=== PATIENT | male | born 1960 | race Caucasian/White ===

== ENCOUNTER 2016-07-16 11:45 | Day surgery (SDC) | payer BC ==
[2016-07-14 09:02] VITALS: BMI 25.7
[~2016-07-16 11:45] MED LIST: LACTATED RINGERS 1,000 ML IV SCH
[2016-07-16 12:39] VITALS: RESP 16; TEMP 98.4
[2016-07-16] MEDS ORDERED: LIDOCAINE 1% 20 ML VIAL (10MG/ML) FOR IV START INTRADERMA ONE (12:44)
[2016-07-16] MEDS ORDERED: IOHEXOL 180 MG/ML 1 ML ML ONE (13:15)
[2016-07-16] MEDS ORDERED: MIDAZOLAM 2 MG/2 ML VIAL ONE (13:15)
[2016-07-16] MEDS ORDERED: TRIAMCINOLONE ACETONIDE 40 MG/ML 1 ML VIAL ONE (13:15)
[2016-07-16] MEDS ORDERED: fentaNYL (PF) 50 MCG/ML 2 ML AMP ONE (13:15)
--- NOTE | 2016-07-16 13:27 | P.PCN ---
Date of Procedure: 07/16/16 Surgeon: Jh Lawson Pathology: none sent Condition: stable Disposition: PACU Description of Procedure: PREOPERATIVE DIAGNOSIS: Lumbar post laminectomy syndrome. POSTOPERATIVE DIAGNOSIS: Lumbar post laminectomy syndrome. PROCEDURE: 1. Caudal epidural steroid injection under fluoroscopic guidance. 2. Caudal epidurogram. ANESTHESIA: Local with 1% lidocaine; conscious IV sedation EBL: None. PROCEDURE INDICATION: This is a patient with postlaminectomy syndrome with uncontrolled pain who presents for caudal ANDREW today. No use of blood thinners. PROCEDURE DESCRIPTION: The patient was seen and identified in the preoperative area. Risks, benefits, complications, and alternatives were discussed with the patient including but not limited to bleeding, infection, nerve damage, incomplete pain relief, and allergic reactions to medications. The patient agreed to proceed with the procedure and signed the consent. IV was started, and vital signs were stable. Patient was taken to the OR and time out was completed. The patient was placed in the prone position on procedure table and a pillow was placed under the abdomen to reduce lumbar lordosis. The lumbosacral area was prepped and draped in the usual sterile fashion. Vital signs were closely monitored during the procedure. Using lateral fluoroscopy the anterior-posterior plates of the sacrum were identified and the skin and deeper tissues corresponding into sacrococcygeal ligament were anesthetized using approximately 3 mL of 1% lidocaine. Then under fluoroscopy, a 3-1/2-inch 20-gauge Tuohy epidural needle was guided through the sacrococcygeal ligament, and into the epidural space. After negative aspiration , a 1 mL of omnipaque-300 contrast dye was injected with excellent epidurogram. Again after negative aspiration for CSF, blood, and with no paresthesias, a solution containing Kenalog 80mg, 3ml of 1% preservative free lidocaine with 10 ml of preservative free normal saline (total of 15 ml) solution was injected with washout of epidurogram. Needle was withdrawn intact. Skin was cleansed, and bandage was applied. COMPLICATIONS: None. COMMENTS: DISPOSITION / PLANS: The patient was placed in a supine position and transferred to the recovery area in a stable condition for observation and was discharged from the recovery room after meeting discharge criteria. Home discharge instructions given to the patient by the staff. The patient was reexamined prior to discharge. The patient will schedule a follow up procedure in 4-6 weeks.
[2016-07-16] MEDS ORDERED: IV FLUID CONTINUATION 1,000 ML IV ONE (13:33)
[2016-07-16 13:37] VITALS: PULSE 57
--- NOTE | 2016-07-16 13:54 | FL ---
EXAMINATION TYPE: FL guided pain mgmt statistic DATE OF EXAM: 07/16/2016 1:31 PM HISTORY: Flouroscopy time 6 seconds of fluoroscopy provided. IMPRESSION: 1. Fluoroscopy time.
[2016-07-16 13:55] VITALS: BP 135/74
--- NOTE | 2016-07-19 05:55 | CDI ---
Dear Dr. Lawson, Per your procedure note, Conscious sedation was documented. The Pain Procedure Record, however, has MAC checked off under Anesthesia Plan. This is conflicting documentation that needs clarification for proper reporting purposes. Please clarify if the anesthesia provided for Nubia Del Rosario was MAC (Monitored Anesthesia Care) or Conscious/Moderate Sedation. Please document this clarification as an addendum to the procedure note. Thank you for your time, Theresa Kapoor, [facility] Outpatient Photographer [email or web address]
== END 2016-07-16 14:05 | disposition home or self-care (01) ==
LOC: ORPAIN 11:45
PROVIDERS: ATTEND Anesthesiology
DX: G89.28 Other chronic postprocedural pain (principal); M54.5 Low back pain; M96.1 Postlaminectomy syndrome, not elsewhere classified; Z91.09 Other allergy status, other than to drugs and biological substances
CPT/HCPCS: 62323; J2250; J3301; Q9965; J3010

== ENCOUNTER → 2016-08-22 | Outpatient (CLI) | payer BC ==
[2016-08-22 09:54] LABS: CH 31.5; CHCM 34.2; HCT 48.2 % (39.0-53.0); HDW 2.61; MCH 30.6 pg (25.0-35.0); MCHC 33.1 g/dL (31.0-37.0); MCV 92.4 fL (80.0-100.0); Mean Platelet Volume 6.9; RBC 5.22 m/uL (4.30-5.90); RDW 13.1 % (11.5-15.5); WBC 4.5 k/uL (3.8-10.6)
[2016-08-22 10:54] LABS: ALT 43 U/L (21-72); AST 38 U/L (17-59); Alkaline Phosphatase 66 U/L (38-126); Anion Gap 7 mmol/L; Blood Urea Nitrogen 21 mg/dL (9-20); Calcium 9.6 mg/dL (8.4-10.2); Carbon Dioxide 31 mmol/L (22-30); Chloride 103 mmol/L (98-107); Cholesterol 305 mg/dL (<200); Glucose 101 mg/dL (74-99); HDL Cholesterol 59 mg/dL (40-60); Non-African American GFR(MDRD) >60 (>60 ml/min/1.73 sqM); Sodium 141 mmol/L (137-145); Total Bilirubin 1.1 mg/dL (0.2-1.3); Total Protein 7.5 g/dL (6.3-8.2); Triglycerides 144 mg/dL (<150)
[2016-08-22 11:26] LABS: Prostate Specific Antigen 0.72 ng/mL (0.00-4.00)
== END | disposition home or self-care (01) ==
LOC: LABWHC1 09:17
PROVIDERS: ATTEND Family Medicine
DX: M47.27 Other spondylosis with radiculopathy, lumbosacral region (principal); F33.1 Major depressive disorder, recurrent, moderate; J01.10 Acute frontal sinusitis, unspecified; Z98.890 Other specified postprocedural states
CPT/HCPCS: 36415; 80053; 80061; 84153; 84443; 85027

== ENCOUNTER 2016-11-29 19:59 | Emergency (ER) | payer BC ==
[2016-11-29] MEDS ORDERED: SODIUM CHLORIDE 0.9% 1,000 ML IV STA (20:19)
[2016-11-29] MEDS ORDERED: ceFAZolin 1,000 MG in DEXTROSE/WATER 1 50ML.BAG IVPB STA (20:24)
[2016-11-29 20:25] VITALS: BP 130/80; PULSE 61; RESP 20
[2016-11-29 20:31] LABS: Basophils # (A) 0.1 k/uL (0-0.2); Basophils % (A) 1 %; CHCM 36.2; Eosinophils # (A) 0.1 k/uL (0-0.7); Eosinophils % (A) 2 %; HCT 38.8 % (39.0-53.0); HGB 13.9 gm/dL (13.0-17.5); Luc # (Auto) 0.22; Luc % (Auto) 4; Lymphocytes # (A) 2.5 k/uL (1.0-4.8); Lymphocytes % (A) 44 %; MCH 32.7 pg (25.0-35.0); MCHC 35.7 g/dL (31.0-37.0); MCV 91.7 fL (80.0-100.0); Mean Platelet Volume 7.7; Monocytes # (A) 0.3 k/uL (0-1.0); Monocytes % (A) 5 %; Neutrophils # (A) 2.6 k/uL (1.3-7.7); Neutrophils % (A) 44 %; RBC 4.23 m/uL (4.30-5.90); RDW 13.2 % (11.5-15.5); WBC 5.8 k/uL (3.8-10.6); WBC (Perox) 5.85
--- NOTE | 2016-11-29 20:31 | ED ---
General Adult HPI - General Chief complaint: Wound/Laceration Stated complaint: arm lac Time Seen by Provider: 11/29/16 20:14 Source: patient, RN notes reviewed Mode of arrival: wheelchair Limitations: no limitations - History of Present Illness Initial comments: Patient is a pleasant 56-year-old male presenting to the emergency Department with arm laceration. Incident occurred just prior to arrival. Patient was using a universal grinder operator underneath of his jeep when it fell onto his right forearm. Patient has had bleeding since that time. Incident occurred less than 20 minutes prior to arrival. Patient did apply a twist tie around his proximal arm. Patient states blood was pumping from his arm. Patient denies any other injury. No head injury or loss of consciousness. No neck or back pain. No chest pain. No abdominal pain. No dyspnea. Patient did have a similar injury to his left hand years ago. - Related Data Home Medications Medication Instructions Recorded Confirmed HYDROcodone/APAP 10-325MG [Solomon 1 tab PO Q6H PRN 11/19/15 09/01/16 10-325] Allergies Allergy/AdvReac Type Severity Reaction Status Date / Time mold Allergy Unknown Verified 11/29/16 20:22 pollen extracts Allergy Unknown Verified 11/29/16 20:22 Review of Systems ROS Statement: Those systems with pertinent positive or pertinent negative responses have been documented in the HPI. ROS Other: All systems not noted in ROS Statement are negative. Constitutional: Denies: fever Eyes: Denies: eye pain ENT: Denies: ear pain Respiratory: Denies: cough Cardiovascular: Denies: chest pain Endocrine: Denies: fatigue Gastrointestinal: Denies: abdominal pain Genitourinary: Denies: dysuria Musculoskeletal: Denies: back pain Skin: Denies: rash Neurological: Denies: weakness Past Medical History Past Medical History: Musculoskeletal Disorder Additional Past Medical History / Comment(s): pain lower back, hayfever History of Any Multi-Drug Resistant Organisms: None Reported Past Surgical History: Back Surgery, Orthopedic Surgery Additional Past Surgical History / Comment(s): L5 disc replacement, lt rotator cuff repair, lt hand surgery screw in place. Past Anesthesia/Blood Transfusion Reactions: Motion Sickness Additional Past Anesthesia/Blood Transfusion Reaction / Comment(s): STATES "I FELT EVERYTHING DURING LAST PAIN CLINIC PROCEDURE" Smoking Status: Never smoker - Past Family History Mother Family Medical History: Cancer Additional Family Medical History / Comment(s): Breast General Exam Limitations: no limitations General appearance: alert, in distress Head exam: Present: atraumatic Eye exam: Present: normal appearance, PERRL ENT exam: Present: normal oropharynx Neck exam: Present: normal inspection Respiratory exam: Present: normal lung sounds bilaterally Cardiovascular Exam: Present: regular rate, normal rhythm GI/Abdominal exam: Present: soft. Absent: tenderness Extremities exam: Present: other (Right mid forearm on the volar side with approximately 4 inch laceration macerated tissue. There is active bleeding. Unable to identify source of bleeding even with tourniquet on. Fingers are somewhat grayish Refill approximately 3 seconds. Patient is able to flex and extend fingers against pressure. Patient does have sensation to touch.) Neurological exam: Present: alert, oriented X3, CN II-XII intact. Absent: motor sensory deficit Psychiatric exam: Present: normal affect, normal mood Skin exam: Present: other (Forearm laceration) Course Vital Signs 11/29/16 20:19 Pulse Rate 61 Respiratory 20 Rate Blood Pressure 130/80 O2 Sat by Pulse 97 Oximetry - Reevaluation(s) Reevaluation #1: 11/29/16 20:25 Case was discussed with emergency department Dr. Bender who will talk to the vascular and call back. Case was discussed with Dr. Moser at 807 who defers case to orthopedics or vascular. Case was discussed with Dr. Nicholas at 8:08 PM who states he is not in the area at this time and case will need to transfered. Case discussed with Dr. Javed at 8:13 PM who feels patient should be transferred. He can come evaluate the patient however is at least 20 minutes away. He feels patient would benefit from vascular surgeon over orthopedic surgery because his repair would be limited and include possible ligation. 11/29/16 20:37 Case was discussed with Dr. Deleon at [facility], who will accept transfer. Patient and family updated. EMSs already here and ready to transfer patient. Tourniquet is changed out. EKG Findings - EKG Comments: EKG Findings:: No sinus rhythm 63. ND 144. QRS 94. QT 442. QTC 452. Normal axis. Normal QRS. Normal ST-T. Medical Decision Making - Lab Data Result diagrams: 11/29/16 20:10 Lab Results 11/29/16 Range/Units 20:10 WBC 5.8 (3.8-10.6) k/uL RBC 4.23 L (4.30-5.90) m/uL Hgb 13.9 (13.0-17.5) gm/dL Hct 38.8 L (39.0-53.0) % MCV 91.7 (80.0-100.0) fL MCH 32.7 (25.0-35.0) pg MCHC 35.7 (31.0-37.0) g/dL RDW 13.2 (11.5-15.5) % Plt Count 164 (150-450) k/uL Neutrophils % 44 % Lymphocytes % 44 % Monocytes % 5 % Eosinophils % 2 % Basophils % 1 % Neutrophils # 2.6 (1.3-7.7) k/uL Lymphocytes # 2.5 (1.0-4.8) k/uL Monocytes # 0.3 (0-1.0) k/uL Eosinophils # 0.1 (0-0.7) k/uL Basophils # 0.1 (0-0.2) k/uL Disposition Clinical Impression: Laceration of right forearm, Hemorrhage Disposition: OTHER INSTITUTION NOT DEFINED Referrals: Emeterio Zabala MD [Primary Care Provider] - 1-2 days Time of Disposition: 20:38 - Out of Hospital Transfer - Req. Specs Out of Hospital Transfer - Requested Specifics: Other Emergency Center
[2016-11-29 20:37] LABS: ALT 49 U/L (21-72); AST 62 U/L (17-59); Alcohol <10 mg/dL; Alkaline Phosphatase 83 U/L (38-126); Anion Gap 11 mmol/L; Blood Urea Nitrogen 21 mg/dL (9-20); Calcium 8.8 mg/dL (8.4-10.2); Carbon Dioxide 20 mmol/L (22-30); Chloride 109 mmol/L (98-107); Glucose 147 mg/dL (74-99); Non-African American GFR(MDRD) >60 (>60 ml/min/1.73 sqM); Potassium 4.2 mmol/L (3.5-5.1); Sodium 140 mmol/L (137-145); Total Bilirubin 0.5 mg/dL (0.2-1.3); Total Protein 6.2 g/dL (6.3-8.2)
[2016-11-29] MEDS ORDERED: DIPH,PERTUS(ACELL)TETVAC-LF 0.5 ML VIAL IM ONE (20:37)
--- NOTE | 2016-11-29 20:43 | XR ---
EXAMINATION TYPE: XR forearm RT DATE OF EXAM: 11/29/2016 CLINICAL HISTORY: pain TECHNIQUE: Frontal and lateral images of the right forearm are obtained. COMPARISON: None. FINDINGS: There is no acute fracture/dislocation evident. The joint spaces appear within normal limi ts. Soft tissue laceration. No evidence for radiopaque foreign body at this time. IMPRESSION: There is no acute fracture or dislocation. ICD 10 NO FRACTURE, INITIAL EVALUATION
[2016-11-29 20:45] LABS: Prothrombin Time 10.3 sec (9.0-12.0)
[2016-11-29 20:49] LABS: Partial Thromboplastin Time 22.3 sec (22.0-30.0)
[2016-11-29 20:51] LABS: Creatine Kinase 966 U/L (55-170)
[2016-11-29 21:04] LABS: Troponin I <0.012 ng/mL (0.000-0.034)
[2016-11-29 21:07] LABS: Creatine Kinase MB 7.1 ng/mL (0.0-2.4)
== END 2016-11-29 20:45 | disposition other institution (70) ==
LOC: EC 19:59
DX: S51.811A Laceration without foreign body of right forearm, initial encounter (principal); R58 Hemorrhage, not elsewhere classified; Z23 Encounter for immunization; Z91.030 Bee allergy status; Z91.048 Other nonmedicinal substance allergy status; W31.89XA Contact with other specified machinery, initial encounter; Y93.89 Activity, other specified; Y92.009 Unspecified place in unspecified non-institutional (private) residence as the place of occurrence of the external cause
CPT/HCPCS: 36415; 93005; 86900; 86901; 80053; 82550; 82553; 84484; 85025; 85610; 85730; 86850; 80320; 73090; 90715; 99285; 96374; 90471; J0690; 96361

== ENCOUNTER → 2018-12-29 | Outpatient (CLI) | payer BC ==
--- NOTE | 2018-12-29 16:24 | MR ---
EXAMINATION TYPE: MR shoulder LT wo con DATE OF EXAM: 12/29/2018 COMPARISON: None HISTORY: 58-year-old male left shoulder pain, evaluate for rotator cuff tear TECHNIQUE: Multiplanar, multisequence imaging of the left shoulder is performed without contrast. FINDINGS: There is extensive motion artifacts degrading the exam. There is abnormal signal at the junction of t he intracapsular and extracapsular portions of the long biceps tendon suggesting focal tendinosis or partial tear. The subscapularis tendon is intact. There is moderate to severe degenerative joint space narrowing with marginal spurring at the acromioc lavicular joint with joint effusion and prominent subchondral cystic change. Capsular swelling about the underlying myotendinous junction of the supraspinatus. There is an irregular full-thickness tear involving the mid supraspinatous tendon fibers measuring up to 1.7 cm AP. Retraction measuring up to 2.6 cm long. The tear is very irregular and there is interp osed intermediate signal debris present. The intact anteriormost fibers of the service and it is are very thickened and heterogeneous. The infraspinatus tendon appears intact. No atrophy of the rotator cuff musculature. Moderate joint effusion contiguous with the subacromial/subdeltoid bursa. Evaluation of glenohumeral joint shows some subchondral cystic change posteriorly and also along the anterior inferior corner. There is degenerative and blunted appearance to the superior labrum. No Hill-Sachs deformity or os acromiale. Patchy red marrow is present and can be seen in the setting of anemia, obesity, smoking, and chronic disease. No suspicious bone marrow replacement. IMPRESSION: 1. Very irregular full-thickness tear of the mid supraspinatus tendon measuring approximately 2.6 cm long and 1.7 cm AP. No rotator cuff muscle atrophy. 2. Severe tendinosis of the intact anterior most supraspinatus tendon fibers. 3. Focal marked tendinosis versus partial tear at the junction of the intracapsular and extracapsular portions of the long head biceps tendon. 4. Severe AC joint OA likely with subacromial impingement. 5. Mild underlying glenohumeral joint OA and a degenerative superior labrum.
== END | disposition home or self-care (01) ==
LOC: RADMRIMAIN 06:39
PROVIDERS: ATTEND Orthopaedic Surgery
DX: M19.012 Primary osteoarthritis, left shoulder (principal); S46.812A Strain of other muscles, fascia and tendons at shoulder and upper arm level, left arm, initial encounter

== ENCOUNTER 2022-03-03 10:31 | Day surgery (SDC) | payer BC ==
[2022-02-27 16:15] VITALS: BMI 26.1
[~2022-03-03 10:31] MED LIST changes: +LIDOCAINE 1% (10MG/ML) FOR IV START INTRADERMA PRN; +ONDANSETRON 4 MG/2 ML VIAL IVP PRN
[2022-03-03 10:53] VITALS: TEMP 97.8
[2022-03-03] MEDS ORDERED: LACTATED RINGERS 1,000 ML IV ONE (10:54)
[2022-03-03] MEDS ORDERED: PROPOFOL 10 MG/ML 20 ML VIAL IV ONE (11:31)
[2022-03-03] MEDS ORDERED: LIDOCAINE 2% INJ 20 MG/ML (2 ML VIAL) ONE (11:31)
--- NOTE | 2022-03-03 11:41 | P.GSHP ---
History of Present Illness H&P Date: 03/03/22 Chief Complaint: Dysphagia, screening 61-year-old male here today for upper and lower endoscopy. Patient with worsening dysphagia. History of known hiatal hernia. Has had dilation in the past. Review for colonoscopy. Last colonoscopy 7-10 years ago. No family history of colon cancer. Past Medical History Past Medical History: Musculoskeletal Disorder Additional Past Medical History / Comment(s): pain lower back, hx of injury right forearm with nerve damage- no needles or IV's right arm below the elbow., hiatal hernia, states food getting stuck and purges to get food out., History of Any Multi-Drug Resistant Organisms: None Reported Past Surgical History: Back Surgery, Orthopedic Surgery Additional Past Surgical History / Comment(s): L5 disc replacement, lt rotator cuff repair, lt hand surgery screw in place., some hardware removed except broken screw., , right shoulder, right forearm injury with severed artery ., e gd with dilation, colonoscopy Past Anesthesia/Blood Transfusion Reactions: No Reported Reaction, Motion Sickness Additional Past Anesthesia/Blood Transfusion Reaction / Comment(s): STATES "I FELT EVERYTHING DURING LAST PAIN CLINIC PROCEDURE" Past Psychological History: No Psychological Hx Reported, Depression Smoking Status: Never smoker Past Alcohol Use History: Occasional Past Drug Use History: Marijuana Additional Drug Use History / Comment(s): current marijuana use. - Past Family History Mother Family Medical History: Cancer Additional Family Medical History / Comment(s): Breast Medications and Allergies Home Medications Medication Instructions Recorded Confirmed Type Ibuprofen [Motrin Ib] 400 mg PO DIRECTED 02/27/22 02/27/22 History Naproxen Sod/Diphenhydramine 1 each PO HS 02/27/22 02/27/22 History [Aleve Pm Caplet] Allergies Allergy/AdvReac Type Severity Reaction Status Date / Time mold Allergy Unknown Verified 02/27/22 15:57 pollen extracts Allergy Unknown Verified 02/27/22 15:57 Surgical - Exam Vital Signs Temp Pulse Resp BP Pulse Ox 97.8 F 88 18 147/74 98 03/03/22 10:52 03/03/22 10:52 03/03/22 10:52 03/03/22 10:52 03/03/22 10:52 Physical exam: General: Well-developed, well-nourished HEENT: Normocephalic, sclerae nonicteric Abdomen: Nontender, nondistended Extremities: No edema Neuro: Alert and oriented Assessment and Plan (1) Colon cancer screening Narrative/Plan: Will proceed with upper and lower endoscopy Current Visit: Yes Status: Acute Code(s): Z12.11 - ENCOUNTER FOR SCREENING FOR MALIGNANT NEOPLASM OF COLON SNOMED Code(s): 869549843
--- NOTE | 2022-03-03 12:00 | P.PCN ---
Date of Procedure: 03/03/22 Procedure(s) Performed: PREOPERATIVE DIAGNOSIS: Dysphagia, screening POSTOPERATIVE DIAGNOSIS: Gastritis, hiatal hernia, distal esophagitis, esophageal stricture, mild diverticulosis PROCEDURE: 1. EGD with dilation and biopsy 2. Colonoscopy ANESTHESIA: MAC SURGEON: Tani Colon M.D. SPECIMENS: Antrum, ENDOSCOPIC PROCEDURE: The patient was on the endoscopy table in the left decubitus position. The Olympus gastroscope was inserted into the oropharynx and passed under direct visualization to the region of the third portion of the duodenum. From that point the scope was slowly withdrawn inspecting all surfaces carefully. There were no neoplastic inflammatory or polypoid lesions throughout the duodenum. The pylorus was widely patent. The stomach was carefully inspected. There was mild gastritis present. A biopsy of the antrum took place to rule out H. pylori. Retroflexion revealed a hiatal hernia. The GE junction was present 3 cm above the diaphragmatic hiatus. At the GE junction there was minimal inflammatory changes present. There was slight narrowing and given the patient's complaints of dysphagia we decided to proceed with dilation. The 15-18 mm load was utilized. We initially filled the balloon to 15 mm. The balloon seemed loose at that point. It was then filled to 16.5 mm. Pressure was held for 1 cm. The balloon was deflated. No bleeding or tear was seen. We then inflated to 18 mm. Pressure was again held for 1 minute. The wound was then deflated. There was a small amount of oozing from a small superficial- appearing mucosal tear. The remainder the esophagus was inspected and appeared normal. The patient was kept on the endoscopy table in the left decubitus position. The Olympus colonoscope was inserted into the anus and passed under direct visualization to the base of the cecum. The appendiceal orifice was visualized. From that point the scope was slowly withdrawn inspecting all surfaces carefully. There were no neoplastic inflammatory or polypoid lesions throughout the cecum, ascending, transverse, descending, sigmoid and rectum. There was mild diverticulosis noted. Digital rectal examination was normal. The patient was taken to the recovery room in stable condition per anesthesia guidelines. RECOMMENDATIONS: Await biopsy results. Begin antiacid therapy. Monitor patient's symptoms. Will discuss surgical options with the patient. Repeat colonoscopy in 10 years.
[2022-03-03 12:12] VITALS: BP 107/66; PULSE 60; RESP 16
== END 2022-03-03 12:38 | disposition home or self-care (01) ==
LOC: ORWHC2ENDO 10:31
PROVIDERS: ATTEND Surgery
DX: Z12.11 Encounter for screening for malignant neoplasm of colon (principal); K21.9 Gastro-esophageal reflux disease without esophagitis; K29.40 Chronic atrophic gastritis without bleeding; K44.9 Diaphragmatic hernia without obstruction or gangrene; F12.90 Cannabis use, unspecified, uncomplicated; K57.30 Diverticulosis of large intestine without perforation or abscess without bleeding; Z87.39 Personal history of other diseases of the musculoskeletal system and connective tissue; Z47.89 Encounter for other orthopedic aftercare; Z98.890 Other specified postprocedural states; Z86.59 Personal history of other mental and behavioral disorders; Z79.899 Other long term (current) drug therapy
CPT/HCPCS: 88305; 43239; 43249; J2704; J2001; C1726; G0121

== ENCOUNTER 2023-10-09 16:01 | Emergency (ER) | payer BC ==
[2023-10-09 16:38] VITALS: RESP 18
--- NOTE | 2023-10-09 16:52 | ED ---
Eye Problem HPI - General Source: patient, RN notes reviewed Mode of arrival: ambulatory Limitations: no limitations <Sarah Segovia - Last Filed: 10/09/23 16:50> - General Source: patient, family, RN notes reviewed Mode of arrival: ambulatory Limitations: no limitations <Basia Ascencio - Last Filed: 10/10/23 00:34> - General Chief complaint: Eye Problems Stated complaint: R eye injury Time Seen by Provider: 10/09/23 16:18 - History of Present Illness Initial comments: Quick Note-this is a 63-year-old male presents emergency room chief complaint of foreign body in his right eye. States that he was using a chainsaw without protection where a piece of wood hit him in the right eye. He endorses mild blurry vision. Unaware when last tetanus vaccine was. (Sarah Segovia) 63-year-old male presenting to the ER with a chief complaint of right eye pain. Patient states he was using a chainsaw without eye protection and believes a wood chip flew into his eye. He states he has flushed his eye out with water and Visine. His reports that she pulled on his lower lid and removed a sliver. He states that he still feels like something is in his eye. He denies any double blurry vision. Tetanus status unknown. Denies any other injuries or complaints. (Basia Ascencio) - Related Data Home Medications Medication Instructions Recorded Confirmed Ibuprofen [Motrin Ib] 400 mg PO DIRECTED 02/27/22 02/27/22 Naproxen Sod/Diphenhydramine 1 each PO HS 02/27/22 02/27/22 [Aleve Pm Caplet] Previous Rx's Medication Instructions Recorded Omeprazole [PriLOSEC] 20 mg PO AC-BRKFST #90 cap 03/03/22 Allergies Allergy/AdvReac Type Severity Reaction Status Date / Time mold Allergy Unknown Verified 10/09/23 16:05 pollen extracts Allergy Unknown Verified 10/09/23 16:05 Review of Systems ROS Other: All systems not noted in ROS Statement are negative. <Sarah Segovia - Last Filed: 10/09/23 16:50> ROS Other: All systems not noted in ROS Statement are negative. <Basia Ascencio - Last Filed: 10/10/23 00:34> ROS Statement: Those systems with pertinent positive or pertinent negative responses have been documented in the HPI. Past Medical History Past Medical History: Musculoskeletal Disorder Additional Past Medical History / Comment(s): pain lower back, hx of injury right forearm with nerve damage- no needles or IV's right arm below the elbow., hiatal hernia, states food getting stuck and purges to get food out., History of Any Multi-Drug Resistant Organisms: None Reported Past Surgical History: Back Surgery, Orthopedic Surgery Additional Past Surgical History / Comment(s): L5 disc replacement, lt rotator cuff repair, lt hand surgery screw in place., some hardware removed except broken screw., , right shoulder, right forearm injury with severed artery ., egd with dilation, colonoscopy Past Anesthesia/Blood Transfusion Reactions: No Reported Reaction, Motion Sickness Additional Past Anesthesia/Blood Transfusion Reaction / Comment(s): STATES "I FELT EVERYTHING DURING LAST PAIN CLINIC PROCEDURE" Past Psychological History: No Psychological Hx Reported, Depression Smoking Status: Never smoker Past Alcohol Use History: Occasional Past Drug Use History: Marijuana - Past Family History Mother Family Medical History: Cancer Additional Family Medical History / Comment(s): Breast <Sarah Segovia - Last Filed: 10/09/23 16:50> General Exam Limitations: no limitations <Sarah Segovia - Last Filed: 10/09/23 16:50> General appearance: alert, in no apparent distress Head exam: Present: atraumatic, normocephalic, normal inspection Eye exam: Present: PERRL, EOMI, conjunctival injection (Left eye), periorbital swelling (Left eye), other (Fluorescein stain negative. IOP 12) Pupils: Present: normal accommodation Respiratory exam: Present: normal lung sounds bilaterally. Absent: respiratory distress, wheezes, rales, rhonchi, stridor Cardiovascular Exam: Present: regular rate, normal rhythm, normal heart sounds. Absent: systolic murmur, diastolic murmur, rubs, gallop, clicks Neurological exam: Present: alert, oriented X3, CN II-XII intact Psychiatric exam: Present: normal affect, normal mood Skin exam: Present: warm, dry, intact, normal color. Absent: rash <Basia Ascencio - Last Filed: 10/10/23 00:34> - General Exam Comments Initial Comments: Visual Physical Exam Vital signs reviewed General: Well-appearing, nontoxic, no acute distress. Head: Normocephalic, atraumatic Eyes: PERRLA, EOMI ENT: Airway patent Chest: Nonlabored breathing Skin: No visual rash, normal skin tone Neuro: Alert and oriented 3 Musculoskeletal: No gross abnormalities (Sarah Segovia) Course Vital Signs 10/09/23 10/09/23 16:02 18:22 Temperature 97.4 F L 98.1 F Pulse Rate 63 60 Respiratory 18 18 Rate Blood Pressure 162/89 147/89 O2 Sat by Pulse 99 98 Oximetry Medical Decision Making <Sarah Segovia - Last Filed: 10/09/23 16:50> <Basia Ascencio - Last Filed: 10/10/23 00:34> - Medical Decision Making I completed the quick note portion of this chart signed Sarah Segovia PA-C (Sarah Segovia) Was pt. sent in by a medical professional or institution (ANDRESSA Mccarthy, PRODUCT DEVELOPMENT DIRECTOR, urgent care, hospital, or usp...) When possible be specific @ -No Did you speak to anyone other than the patient for history (EMS, parent, family, police, friend...)? What history was obtained from this source @ -Life eating and past medical history Did you review nursing and triage notes (agree or disagree)? Why? @ -I reviewed and agree with nursing and triage notes Were old charts reviewed (outside hosp., previous admission, EMS record, old EKG, old radiological studies, urgent care reports/EKG's, usp records)? Report findings @ -No old charts were reviewed Differential Diagnosis (chest pain, altered mental status, abdominal pain women, abdominal pain men, vaginal bleeding, weakness, fever, dyspnea, syncope, headache, dizziness, GI bleed, back pain, seizure, CVA, palpatations, mental health, musculoskeletal)? @ -Corneal abrasion, ocular foreign body, hyphema, conjunctivitis, globe rupture, acute angle-closure glaucoma this list is not meant to be all-inclusive EKG interpreted by me (3pts min.). @ -None X-rays interpreted by me (1pt min.). @ -None done CT interpreted by me (1pt min.). @ -None done U/S interpreted by me (1pt. min.). @ -None done What testing was considered but not performed or refused? (CT, X-rays, U/S, labs)? Why? @ -None What meds were considered but not given or refused? Why? @ -Patient refused tetanus vaccination Did you discuss the management of the patient with other professionals (professionals i.e. , PA, PRODUCT DEVELOPMENT DIRECTOR, lab, RT, psych nurse, school social worker, bank compliance officer, teacher, military source operations officer, disease case manager)? Give summary @ -No Was smoking cessation discussed for >3mins.? @ -No Was critical care preformed (if so, how long)? @ -No Were there social determinants of health that impacted care today? How? (Homelessness, low income, unemployed, alcoholism, drug addiction, transportation, low edu. Level, literacy, decrease access to med. care, intermediate, rehab)? @ -No Was there de-escalation of care discussed even if they declined (Discuss DNR or withdrawal of care, Hospice)? DNR status @ -No What co-morbidities impacted this encounter? (DM, HTN, Smoking, COPD, CAD, Cancer, CVA, ARF, Chemo, Hep., AIDS, mental health diagnosis, sleep apnea, morbid obesity)? @ -None Was patient admitted / discharged? Hospital course, mention meds given and route, prescriptions, significant lab abnormalities, going to OR and other pertinent info. @ -Discharge. 63-year-old male presenting to the ER with a chief complaint of left eye injury. History and physical exam completed. Vitals stable. Patient no signs of acute distress and nontoxic-appearing. Pupils equal round and reactive with intact extraocular motions. IOP 12, fluorescein stain negative for uptake. No foreign bodies on lid flip. No evidence of hyphema, globe rupture, foreign body. Bilateral eyes flushed with saline. Tobrex eyedrops prescribed for infection prophylaxis. Patient refused tetanus vaccination. Advise close follow-up with PCP and ophthalmology. Referral given. Strict return parameters discussed. Patient discharged in stable condition with follow-up to PCP. Patient and verbally expressed understanding and agreement with care plan. Case discussed with ED attending, Dr. Bolden. Undiagnosed new problem with uncertain prognosis? @ -No Drug Therapy requiring intensive monitoring for toxicity (Heparin, Nitro, Insulin, Cardizem)? @ -No Were any procedures done? @ -No Diagnosis/symptom? @ -Ocular injury Acute, or Chronic, or Acute on Chronic? @ -Acute Uncomplicated (without systemic symptoms) or Complicated (systemic symptoms)? @ -Uncomplicated Side effects of treatment? @ -No Exacerbation, Progression, or Severe Exacerbation? @ -No Poses a threat to life or bodily function? How? (Chest pain, [place], [place], pneumonia, PE, COPD, DKA, ARF, appy, cholecystitis, CVA, Diverticulitis, Homicidal, Suicidal, threat to staff... and all critical care pts) @ -No (Basia Ascenico) Disposition <Sarah Segovia - Last Filed: 10/09/23 16:50> Is patient prescribed a controlled substance at d/c from ED?: No Time of Disposition: 17:56 <Basia Ascencio - Last Filed: 10/10/23 00:34> Clinical Impression: Eye injury Disposition: HOME SELF-CARE Condition: Stable Instructions (If sedation given, give patient instructions): Eye Foreign Body (ED) Additional Instructions: Use Tobrex every 6 hours for 5 days. Follow-up with PCP/ophthalmology if symptoms persist. Return to the ER for any new or worsening concerns. Referrals: None,Stated [Primary Care Provider] - 1-2 days Mustapha Palmer MD [STAFF PHYSICIAN] - 1-2 days Kulwant Tompkins MD [STAFF PHYSICIAN] - 1-2 days Spencer Choi MD [STAFF PHYSICIAN] - 1-2 days Forms: Area PCPs
[2023-10-09] MEDS: PROPARACAINE 0.5% OPHTH DROPS 15 ML BTL RIGHT EYE STA (17:28)
[2023-10-09] MEDS: FLUORESCEIN STRIPS 1 MG STRIP RIGHT EYE ONE (17:29)
[2023-10-09] MEDS: DIPH,PERTUS(ACELL)TETVAC-LF 0.5 ML VIAL IM ONE (17:30)
[2023-10-09] MEDS: TOBRAMYCIN 0.3% OPHTH DROPS 5 ML BTL RIGHT EYE STA (18:18)
[2023-10-09 18:38] VITALS: BP 147/89; PULSE 60; TEMP 98.1
== END 2023-10-09 18:23 | disposition home or self-care (01) ==
LOC: EC 16:01
DX: S05.91XA Unspecified injury of right eye and orbit, initial encounter (principal); F12.90 Cannabis use, unspecified, uncomplicated; Z88.8 Allergy status to other drugs, medicaments and biological substances; W22.8XXA Striking against or struck by other objects, initial encounter
CPT/HCPCS: 99283